=== PATIENT | male | born 1990 | race Two or more races ===

== ENCOUNTER 2017-06-09 18:00 | Emergency (ER) | payer SELFPAY ==
[~2017-06-09] VITALS: Ht 177.8 cm; Wt 86.2 kg
[2017-06-09 18:14] VITALS: BP 147/98
[2017-06-09] MEDS ORDERED: FLUCONAZOLE 100 MG TAB PO ONE (21:00)
== END 2017-06-09 20:50 | disposition home or self-care (01) ==
LOC: ER 18:00
DX: N48.1 Balanitis (principal)